=== PATIENT | female | born 1950 | race Native Hawaiian/Other Pacific Islander ===

== ENCOUNTER 2016-07-22 09:13 | Outpatient (CLI) | payer OTHER ==
[~2016-07-22 09:13] MED LIST: CARV25TA PO
[2016-07-22 10:41] LABS: POTASSIUM 4.9 mmol/L (3.6-5.2)
[2016-07-22 10:52] LABS: PLATELET COUNT 245 K/uL (152-353)
== END 2016-07-22 19:11 | disposition home or self-care (01) ==
LOC: LABW 09:13
PROVIDERS: Internal Medicine Cardiovascular Disease
DX: E78.4 Other hyperlipidemia (principal); R42 Dizziness and giddiness; R06.09 Other forms of dyspnea
CPT/HCPCS: 36415; 80048; 85027

== ENCOUNTER → 2017-01-11 11:12 | Outpatient (CLI) | payer OTHER | END | disposition home or self-care (01) | LOC: AMB 11:12 | DX: R55 Syncope and collapse (principal) ==

== ENCOUNTER 2017-01-11 12:04 | Emergency (ER) | payer OTHER ==
[~2017-01-11] VITALS: Ht 157.5 cm; Wt 36.3 kg
[2017-01-11 12:10] VITALS: TEMP 97.3
[2017-01-11 13:06] LABS: PLATELET COUNT 308 K/uL (152-353)
[2017-01-11 13:12] LABS: POTASSIUM 4.2 mmol/L (3.6-5.2)
[2017-01-11 13:23] LABS: PARTIAL THROMBOPLASTIN TIME 25.4 SECONDS (24.5-33.6)
[2017-01-11 14:50] VITALS: BP 151/74
== END 2017-01-11 15:25 ==
LOC: ED 12:04
PROVIDERS: Family Medicine
DX: R51 Headache (principal); R41.0 Disorientation, unspecified; R40.1 Stupor; E87.1 Hypo-osmolality and hyponatremia; I16.0 Hypertensive urgency; G45.8 Other transient cerebral ischemic attacks and related syndromes; R41.82 Altered mental status, unspecified; R56.9 Unspecified convulsions; R00.0 Tachycardia, unspecified
CPT/HCPCS: 36415; 80053; 82550; 84484; 85027; 85610; 85730; 93005; 96360; 96374; 96375; 99284; J3360

== ENCOUNTER 2017-01-26 09:51 | Outpatient (CLI) | payer OTHER | END 2017-01-26 10:55 | disposition home or self-care (01) | LOC: LABW 09:51 | DX: I65.22 Occlusion and stenosis of left carotid artery (principal) | CPT/HCPCS: 36415; 85651 ==

== ENCOUNTER 2017-03-19 11:13 | Outpatient (CLI) | payer OTHER ==
[2017-03-19 11:30] LABS: PLATELET COUNT 259 K/uL (152-353)
[2017-03-19 11:37] LABS: POTASSIUM 4.1 mmol/L (3.6-5.2)
[2017-03-19 11:54] LABS: PARTIAL THROMBOPLASTIN TIME 25.6 SECONDS (24.5-33.6)
== END 2017-03-19 12:15 | disposition home or self-care (01) ==
LOC: LABW 11:13
PROVIDERS: Surgery Vascular Surgery
DX: I70.202 Unspecified atherosclerosis of native arteries of extremities, left leg (principal)
CPT/HCPCS: 36415; 80048; 85027; 85610; 85730

== ENCOUNTER 2017-05-17 10:50 | Outpatient (CLI) | payer OTHER | END 2017-05-17 11:00 | disposition short-term general hospital (02) | LOC: AMB 10:50 | DX: R40.4 Transient alteration of awareness (principal) | CPT/HCPCS: A0425; A0427 ==

== ENCOUNTER 2017-05-17 11:00 | Emergency (ER) | payer OTHER ==
[~2017-05-17] VITALS: Ht 162.6 cm; Wt 49.9 kg
[2017-05-17 11:03] VITALS: TEMP 97.6
[2017-05-17 11:33] LABS: POTASSIUM 4.6 mmol/L (3.6-5.2)
[2017-05-17 12:01] LABS: PARTIAL THROMBOPLASTIN TIME 24.7 SECONDS (24.5-33.6)
[2017-05-17 13:23] LABS: PLATELET COUNT 311 K/uL (152-353)
[2017-05-17 15:05] VITALS: BP 153/80
== END 2017-05-17 15:05 | disposition home or self-care (01) ==
LOC: ED 11:00
PROVIDERS: Family Medicine
DX: T40.2X1A Poisoning by other opioids, accidental (unintentional), initial encounter (principal); R41.82 Altered mental status, unspecified; Y92.89 Other specified places as the place of occurrence of the external cause
CPT/HCPCS: 36415; 80053; 80307; 81000; 82550; 84484; 85027; 85610; 85730; 87040; 93005; 96365; 96375; 96376; 99284; J1170; J2060; J2310; J2405; J3370; J7060

== ENCOUNTER 2017-09-15 16:35 | Outpatient (CLI) | payer OTHER ==
[2017-09-15 17:14] LABS: PLATELET COUNT 304 K/uL (152-353)
[2017-09-15 17:26] LABS: POTASSIUM 3.3 mmol/L (3.6-5.2)
== END 2017-09-15 20:37 | disposition home or self-care (01) ==
LOC: RESP 16:35
PROVIDERS: Podiatrist
DX: Z01.810 Encounter for preprocedural cardiovascular examination (principal); Z01.811 Encounter for preprocedural respiratory examination; Z01.812 Encounter for preprocedural laboratory examination
CPT/HCPCS: 36415; 80053; 85002; 85027; 93005

== ENCOUNTER 2017-11-08 14:46 | Outpatient (CLI) | payer OTHER ==
[2017-11-08 15:43] LABS: PLATELET COUNT 340 K/uL (152-353)
[2017-11-08 15:51] LABS: POTASSIUM 4.2 mmol/L (3.6-5.2)
== END 2017-11-08 23:08 | disposition home or self-care (01) ==
LOC: LABW 14:46
PROVIDERS: Podiatrist
DX: Z01.812 Encounter for preprocedural laboratory examination (principal); D64.89 Other specified anemias
CPT/HCPCS: 36415; 80053; 85002; 85027

== ENCOUNTER 2018-03-02 13:30 | Inpatient (IN) | payer OTHER ==
[~2018-03-02] VITALS: Ht 160 cm; Wt 49.1 kg
--- NOTE | 2018-03-02 15:09 | NUR ---
THERAPY HERE AT THIS TIME. YENIFER FROM THERAPY SATES PT TOLERATED THERAPY WELL. PT ABLE TO STAND AND PIVOT TO [facility] [place] WITH NO PROBLEMS.
[2018-03-02 17:32] VITALS: BP 149/47; TEMP 97.9; BMI 19.0
[2018-03-02 20:00] VITALS: BP 134/52; TEMP 98.4
--- NOTE | 2018-03-03 05:30 | NUR ---
PT GIVEN HYDROCODONE-ACTEMIONOPHEN 5-325 MG TAB PO. NOT PROFILED AT THIS TIME
--- NOTE | 2018-03-03 06:10 | NUR ---
PATIENT WAS ADMITTED WITH WEAKNESS AND RECENT L BKA AND WEIGHT AT 107.5 AND IBW 115+/-10% AND WITH BKA = 104+/-10% AND KCAL FOR IBW/WT. [id number], PROTEIN NEEDS 49 TO 74 GRAMS AND FLUID NEEDS= [id number] ML PER DAY. ON A CARDICA DIET PLAN AND IS 103% IBW. RECOMMENDATIONS: 1-ADD MVI 1 PO Q DAY, VIT C 500 MG BID, ZNSO4 220 MG PER DAY AND PROTEINIX 30 ML TID TO PROMOTE HEALING.
[2018-03-03 09:21] LABS: PLATELET COUNT 370 K/uL (152-353)
[2018-03-03 10:02] LABS: POTASSIUM 4.4 mmol/L (3.6-5.2)
[2018-03-03 20:00] VITALS: BP 125/42; TEMP 97.8
[2018-03-04 20:07] VITALS: BP 137/53; TEMP 98.2
[2018-03-05 08:14] VITALS: BP 143/71; TEMP 98.7
[2018-03-05 20:00] VITALS: BP 124/55; TEMP 97.9
[2018-03-06 08:04] VITALS: BP 139/51; TEMP 98
[2018-03-06 20:22] VITALS: BP 145/55; TEMP 98.6
[2018-03-07 08:00] VITALS: BP 155/54; TEMP 97.9
[2018-03-07 11:15] LABS: PLATELET COUNT 393 K/uL (152-353)
[2018-03-07 20:00] VITALS: BP 142/55; TEMP 98.9
[2018-03-08 04:10] VITALS: BP 136/62; TEMP 97.8; Ht 160 cm; Wt 49.1 kg
[2018-03-08 20:00] VITALS: BP 156/61; TEMP 97.9
[2018-03-09 06:21] LABS: PLATELET COUNT 397 K/uL (152-353)
[2018-03-09 06:46] LABS: POTASSIUM 4.4 mmol/L (3.6-5.2)
[2018-03-09 08:00] VITALS: BP 139/61; TEMP 98.3
[2018-03-09 20:42] VITALS: BP 121/50; TEMP 98.1
--- NOTE | 2018-03-10 08:00 | NUR ---
PT HGB OF 7.7 REPORTED TO SHERYL BOBBY. PT GOING TO POST AMPUTATION APPOINTMENT TODAY 03/10/18 AT 1300. SHERYL IBARRA STATES TO LET VASCULAR SURGEON ADDRESS HGB.
--- NOTE | 2018-03-10 12:30 | NUR ---
PT SON HERE TO TAKE PT TO DR APPOINTMENT IN [place].
[2018-03-10 20:00] VITALS: BP 133/50; TEMP 98.1
--- NOTE | 2018-03-11 00:51 | NUR ---
03/10/18 @ 19:30 SHIFT ASSESSMENT COMPLETE AT THIS TIME DRESSING NOTED TO Ashlie JONES DRESSING SOILD WITH QUARTER SIZE AMT OF BLOOD PT REQUEST IT CHANGED SO IT WONT DRY AND HURT. PT STATED THAT IT WAS CHANGED AT DRS OFFICE TODAY EDUCATED PT THAT I WOULD BE BACK TO CHANGE DRESSING WHEN I GAVE HER NIGHT TIME MEDS PERCOCET GIVEN AT THIS TIME FOR PAIN . 21:50 PM MEDS GIVEN PT REFUSED ANY DRESSING CHANGE AT THIS TIME DUE TO PAIN PT WAS ASLEEP UPON ENTERING ROOM FOR MED PASS. PRN TRAMADOL AND XANAX GIVEN AT THIS TIME REQUESTED.
[2018-03-11 08:02] VITALS: BP 135/48; TEMP 98.02
--- NOTE | 2018-03-11 16:12 | NUR ---
MRS BAIN IS A 67 YEAR OLD FEMALE ADMITTED FROM [facility] WITH RECENT HOSPITAL STAY FOR LEFT BELOW KNEE AMPUTATION. SHE WAS ADMITTED TO OUR RESIDENTIAL SWINGBED FACILITY FOR REHAB SERVICES. SHE IS FOUND TO HAVE LEFT BKA WITH WOUND CLEAN AND DRY. SHE HAS TROUBLE TRANSFERRING AND WITH LOWER BODY ADL'S. SHE WILL NEED 24 HOUR RESIDENTIAL CARE WITH IS A PRACTICAL MATTER AND CAN ONLY BE DONE ON A INPT BASIS BECAUSE SHE IS A DISABLED WOMAN THAT STAYS HOME ALONE WHILE HER SPOUSE IS AT WORK. LIGIA WILL NEED HELP WITH LEARNING TO DO ALL HER ADL'S AND TRANSFERRING TO AND FROM BEDSIDE COMMODE AND SHOWER. SHE WILL NEED HELP WITH ALL MEALS AND LEARNING TO PREPARE THEM. SHE HAS NO OTHER FAMILY AT HOME TO CARE FOR HER. SHE WILL RECEIVE PT AND OT SERVICES AND UTILITY ACCOUNTS DIRECTOR WILL CONTINUE TO OBSERVE HER PROGRESS AND ASSIST WITH ANY MEDICALLY RELATED NEEDS UPON DISCHARGE.
[2018-03-11 20:00] VITALS: BP 140/51; TEMP 98.2
[2018-03-12 08:06] VITALS: BP 130/51; TEMP 98.1
[2018-03-12 19:52] VITALS: BP 140/57; TEMP 98.5
[2018-03-13 08:06] VITALS: BP 120/56; TEMP 98.4
[2018-03-13 20:00] VITALS: BP 132/47; TEMP 97.7
[2018-03-14 20:00] VITALS: BP 163/59; TEMP 98.1
[2018-03-15 08:00] VITALS: BP 148/61; TEMP 98.5
[2018-03-15 20:00] VITALS: BP 165/65; TEMP 98.4
--- NOTE | 2018-03-15 23:13 | NUR ---
DRESSING CHANGE TO [facility]. SURGICAL WOUND INTACT , CLEANED WITH SOAP AND WATER, PAINTED WITH BETADINE, COVERED WITH 4X4'S AND WRAPPED WITH MATIAS. PT TOLERATED WELL.
[2018-03-16 05:52] LABS: PLATELET COUNT 313 K/uL (152-353)
[2018-03-16 06:12] LABS: POTASSIUM 3.9 mmol/L (3.6-5.2)
[2018-03-16 08:00] VITALS: BP 143/57; TEMP 97.4
--- NOTE | 2018-03-16 10:40 | NUR ---
THERAPY AT BEDSIDE TO ASSIST PATIENT PERFORM BED BATH. PATIENT TOLERATED WELL.
[2018-03-16 20:00] VITALS: BP 168/70; TEMP 98.8
[2018-03-17 08:07] VITALS: BP 115/78; TEMP 97.4
[2018-03-17 20:00] VITALS: BP 146/76; TEMP 98.4
[2018-03-18 08:06] VITALS: BP 136/92; TEMP 98.1
--- NOTE | 2018-03-18 12:28 | NUR ---
SPOKE WITH PATIENT WITH HER AT BEDSIDE. PT REQUESTING [facility]. PT HAD SERVICES WITH THEM BEFORE SHE HAD SURGERY. THE HOME HEALTH WAS NOTIFIED.
== END 2018-03-18 16:24 | disposition home or self-care (01) | DRG 556 ==
LOC: MED/SURG 13:30
PROVIDERS: ADMIT Emergency Medicine
DX: M62.81 Muscle weakness (generalized) (principal); G40.802 Other epilepsy, not intractable, without status epilepticus; T81.49XA Infection following a procedure, other surgical site, initial encounter; Z89.512 Acquired absence of left leg below knee; I25.10 Atherosclerotic heart disease of native coronary artery without angina pectoris; K21.9 Gastro-esophageal reflux disease without esophagitis; J44.9 Chronic obstructive pulmonary disease, unspecified; Z86.73 Personal history of transient ischemic attack (TIA), and cerebral infarction without residual deficits; I10 Essential (primary) hypertension; F41.8 Other specified anxiety disorders; B96.5 Pseudomonas (aeruginosa) (mallei) (pseudomallei) as the cause of diseases classified elsewhere; Y83.5 Amputation of limb(s) as the cause of abnormal reaction of the patient, or of later complication, without mention of misadventure at the time of the procedure; K59.09 Other constipation
CPT/HCPCS: 36415; 80053; 85027; 87070; 87077; 87185; 87186; 87205

== ENCOUNTER 2018-03-20 23:01 | Outpatient (CLI) | payer OTHER | END 2018-03-20 23:40 | disposition short-term general hospital (02) | LOC: AMB 23:01 | DX: R07.89 Other chest pain (principal); R06.02 Shortness of breath | CPT/HCPCS: A0425; A0427 ==

== ENCOUNTER 2018-03-30 14:11 | Inpatient (IN) | payer OTHER ==
[2018-03-31 05:38] LABS: PLATELET COUNT 276 K/uL (152-353)
[2018-03-31 06:25] LABS: POTASSIUM 4.2 mmol/L (3.6-5.2)
== END 2018-04-26 11:07 | disposition still patient (30) ==
LOC: PAVB 14:11
PROVIDERS: ADMIT Internal Medicine
DX: M62.81 Muscle weakness (generalized) (principal); Z89.512 Acquired absence of left leg below knee; R26.89 Other abnormalities of gait and mobility; J44.9 Chronic obstructive pulmonary disease, unspecified; I25.10 Atherosclerotic heart disease of native coronary artery without angina pectoris; F33.9 Major depressive disorder, recurrent, unspecified; F41.9 Anxiety disorder, unspecified; I65.29 Occlusion and stenosis of unspecified carotid artery; I73.9 Peripheral vascular disease, unspecified; K21.9 Gastro-esophageal reflux disease without esophagitis
CPT/HCPCS: 80053; 82306; 82607; 82728; 83540; 83630; 84443; 85014; 85018; 85027; 87015; 87045; 87081; 87324; 87328; 87329; 87449; 87899

== ENCOUNTER 2018-04-13 11:16 | Outpatient (CLI) | payer OTHER | END 2018-04-13 19:26 | disposition home or self-care (01) | LOC: RAD 11:16 | DX: E55.9 Vitamin D deficiency, unspecified (principal) ==

== ENCOUNTER 2018-04-17 16:18 | Emergency (ER) | payer OTHER ==
[~2018-04-17] VITALS: Ht 160 cm; Wt 41.3 kg
[2018-04-17 17:00] LABS: PLATELET COUNT 325 K/uL (152-353)
[2018-04-17 17:05] LABS: POTASSIUM 3.3 mmol/L (3.6-5.2)
[2018-04-17 17:11] LABS: PARTIAL THROMBOPLASTIN TIME 27.2 SECONDS (24.5-33.6)
[2018-04-17 18:30] VITALS: BP 137/64; TEMP 98
== END 2018-04-17 18:31 ==
LOC: ED 16:18
PROVIDERS: Family Medicine
PROC: 2Y51X5Z Removal of Nasal Packing Material (ICD-10-PCS; principal; 2018-04-17)
DX: R04.0 Epistaxis (principal); Z79.01 Long term (current) use of anticoagulants; J01.80 Other acute sinusitis; R51 Headache
CPT/HCPCS: 36415; 80053; 85027; 85610; 85730; 99283

== ENCOUNTER 2018-04-26 11:34 | Inpatient (IN) | payer OTHER | END 2018-05-27 13:34 | disposition still patient (30) | LOC: PAVB 11:34 | PROVIDERS: ADMIT Internal Medicine ==

== ENCOUNTER 2018-05-01 05:58 | Outpatient (CLI) | payer OTHER | END 2018-05-01 07:00 | disposition home or self-care (01) | LOC: LAB 05:58 | DX: D50.9 Iron deficiency anemia, unspecified (principal) | CPT/HCPCS: 83540 ==

== ENCOUNTER 2018-05-27 13:51 | Inpatient (IN) | payer OTHER | END 2018-06-11 05:44 | disposition E | LOC: PAVB 13:51 | PROVIDERS: ADMIT Internal Medicine ==

== ENCOUNTER 2018-05-27 15:29 | Outpatient (CLI) | payer OTHER | END 2018-05-27 22:45 | disposition home or self-care (01) | LOC: LAB 15:29 | DX: R41.82 Altered mental status, unspecified (principal); R10.30 Lower abdominal pain, unspecified | CPT/HCPCS: 81000 ==

== ENCOUNTER 2018-05-31 10:47 | Outpatient (CLI) | payer OTHER ==
[2018-05-31 11:05] LABS: PLATELET COUNT 257 K/uL (152-353)
[2018-05-31 12:27] LABS: POTASSIUM 4.6 mmol/L (3.6-5.2)
== END 2018-05-31 20:27 | disposition home or self-care (01) ==
LOC: LAB 10:47
PROVIDERS: Internal Medicine
DX: R41.0 Disorientation, unspecified (principal)
CPT/HCPCS: 80053; 85027

== ENCOUNTER 2018-06-02 05:43 | Outpatient (CLI) | payer OTHER | END 2018-06-02 22:19 | LOC: LAB 05:43 | DX: R10.84 Generalized abdominal pain (principal); R41.82 Altered mental status, unspecified | CPT/HCPCS: 81000 ==

== ENCOUNTER 2018-06-10 11:15 | Emergency (ER) | payer OTHER ==
[~2018-06-10] VITALS: Ht 160 cm; Wt 41.3 kg
[2018-06-10 12:31] LABS: PLATELET COUNT 334 K/uL (152-353)
[2018-06-10 12:54] LABS: POTASSIUM 4.4 mmol/L (3.6-5.2)
[2018-06-10 15:53] VITALS: BP 127/63; TEMP 98.3
== END 2018-06-10 15:53 ==
LOC: ED 11:15
PROVIDERS: Emergency Medicine
DX: N39.0 Urinary tract infection, site not specified (principal); E86.0 Dehydration; T40.2X5A Adverse effect of other opioids, initial encounter; Y92.128 Other place in nursing home as the place of occurrence of the external cause
CPT/HCPCS: 36415; 80048; 81000; 85007; 85027; 87077; 87086; 87088; 87186; 96365; 96366; 96376; 99284; J0696; J2310; J7060

== ENCOUNTER 2018-06-11 02:29 | Emergency (ER) | payer OTHER ==
[~2018-06-11] VITALS: Ht 160 cm; Wt 41.3 kg
[2018-06-11 02:29] VITALS: BP 66/42
[2018-06-11 03:17] LABS: PLATELET COUNT 293 K/uL (152-353)
[2018-06-11 03:24] LABS: POTASSIUM 4.5 mmol/L (3.6-5.2)
[2018-06-11 04:08] LABS: PARTIAL THROMBOPLASTIN TIME 28.8 SECONDS (24.5-33.6)
[2018-06-11 04:10] VITALS: TEMP 98.9
== END 2018-06-11 08:10 | disposition expired ==
LOC: ED 02:29
PROVIDERS: Emergency Medicine
PROC: 0T9B70Z Drainage of Bladder with Drainage Device, Via Natural or Artificial Opening (ICD-10-PCS; principal; 2018-06-11)
DX: R57.0 Cardiogenic shock (principal); A41.89 Other specified sepsis; I95.89 Other hypotension; R79.89 Other specified abnormal findings of blood chemistry; I25.10 Atherosclerotic heart disease of native coronary artery without angina pectoris
CPT/HCPCS: 36415; 36600; 51702; 80053; 81000; 82150; 82550; 82553; 82805; 83605; 83690; 83735; 84484; 85007; 85027; 85610; 85730; 87040; 93005; 96365; 96375; 96376; 99285; J3490